=== PATIENT | female | born 1980 | race Two or more races ===

== ENCOUNTER 2016-09-14 22:45 | Emergency (ER) | payer MEDICAID ==
[~2016-09-14] VITALS: Ht 162.6 cm; Wt 86.2 kg
[~2016-09-14 22:45] MED LIST: ATIVAN0.5 MG ORAL; BACTRIM-DS1 EA ORAL; BACTROBAN 2% OI15 GM TOPIC; CIPRO500 MG PO; HYDROCODON-ACE1 EA15 ORAL; IBUPROFEN600 MG ORAL; NORCO 5-325 TA1 EACH ORAL; ZOFRAN4 MG ORAL
[2016-09-14 23:00] VITALS: BP 119/61
[2016-09-14] MEDS ORDERED: NKM (23:05)
--- NOTE | 2016-09-14 23:29 | Emergency Room Report ---
History of Present Illness General Chief Complaint: Chest Pain Source: Patient Present Illness HPI Is a 36-year-old female with no significant past medical history. She presents with chief complaint of not feeling well for last week. Subjective fever and chills. Also with sore throat. Chest tightness. No cough or congestion. No runny nose. Has not anything for this. Denies any other complaint. Allergies: Coded Allergies: PENICILLINS (Verified Allergy, Unknown, rash, 09/14/16) Patient History Past Medical History: see triage record, old chart reviewed Past Surgical History: none Pertinent Family History: none Social History: Denies: smoking Last Menstrual Period: Sep 06 Now: No Immunizations: other Reviewed Nursing Documentation: PMH: Agreed, PSxH: Agreed Nursing Documentation-PMH Past Medical History: No Stated History Hx Hypertension: No Hx Neurological Problems: No Review of Systems Constitutional: Reports: fever, weakness Eye: Denies: blurred vision, eye pain ENT: Denies: ear pain, nose congestion, throat swelling Respiratory: Denies: cough, shortness of breath Cardiovascular: Denies: chest pain, palpitations Gastrointestinal: Denies: abdominal pain, diarrhea, nausea, vomiting Musculoskeletal: Denies: back pain, joint pain Skin: Denies: rash Neurological: Denies: headache, numbness Endocrine: Denies: increased thirst, increased urine Hematologic/Lymphatic: Denies: easy bruising All Other Systems: negative except mentioned in HPI Physical Exam Vital Signs Date Time Temp Pulse Resp B/P Pulse Ox O2 Delivery O2 Flow Rate FiO2 09/14/16 22:57 98.6 95 16 132/92 99 Room Air vitals normal Sp02 EP Interpretation: reviewed, normal General Appearance: well appearing, no apparent distress, alert Head: normocephalic, atraumatic Eyes: bilateral eye EOMI, bilateral eye PERRL ENT: hearing grossly normal, tonsillar swelling, pharyngeal erythema Neck: full range of motion, supple, no meningismus Respiratory: chest non-tender, lungs clear, normal breath sounds Cardiovascular #1: regular rate, rhythm, no murmur Gastrointestinal: normal bowel sounds, non tender, no mass, no organomegaly, no bruit, non-distended Musculoskeletal: back normal, gait/station normal, normal range of motion Psychiatric: mood/affect normal Skin: warm/dry Medical Decision Making Diagnostic Impression: Primary Impression: Tonsillitis with exudate Additional Impressions: Chest pain Qualified Codes: R07.9 - Chest pain, unspecified Obesity (BMI 30.0-34.9) ER Course Patient presents with tonsillitis and subjective fever. No evidence of retropharyngeal abscess, peritonsillar abscess or Ryan angina. She fell better now. We'll discharge home. EKG Diagnostic Results Rate: normal Rhythm: NSR ST Segments: no acute changes Rhythm Strip Diag. Results EP Interpretation: yes Rate: 80 Rhythm: NSR, no PVC's, no ectopy Chest X-Ray Diagnostic Results EP Interpretation: Yes Findings: no consolidation, no effusion, no pneumothorax, no acute cardiopulmonary disease Number of Views: 1 Last Vital Signs Date Time Temp Pulse Resp B/P Pulse Ox O2 Delivery O2 Flow Rate FiO2 09/14/16 22:57 98.6 95 16 132/92 99 Room Air Status: improved Disposition: HOME, SELF-CARE Condition: Stable Scripts Azithromycin* (ZITHROMAX*) 250 Mg Tablet 250 MG ORAL DAILY, #6 TAB 0 Refills Take two tablets by mouth today, then take one tablet by mouth daily for four days Prov: JOSIAH ROSENBERG M.D. 09/15/16 Hydrocodone/Acetaminophen 5-325* (HYDROCODONE/ACETAMINOPHEN 5-325*) 1 Each Tablet 1 TAB ORAL Q6H Y for For Pain, #20 TAB 0 Refills Prov: JOSIAH ROSENBERG M.D. 09/15/16 Additional Instructions: Followup with your DrTish in 7 days. Return if symptom worsen. JOSIAH ROSENBERG M.D. Sep 14, 2016 23:29
[2016-09-14] MEDS ORDERED: Ketorolac 30mg Inj IV ONE (23:30)
[2016-09-14 23:36] LABS: APPEARANCE,URINE CLEAR; KETONES,URINE NEGATIVE (NEGATIVE); LEUKOCYTE ESTERASE ,URINE NEGATIVE (NEGATIVE); NITRITE,URINE NEGATIVE (NEGATIVE); PH,URINE 7 (4.5-8.0); PROTEIN,URINE NEGATIVE (NEGATIVE); UROBILINOGEN,URINE NORMAL MG/DL (0.0-1.0)
[2016-09-14 23:57] VITALS: BP 122/77
[2016-09-15] MEDS ORDERED: Morphine Sulfate 4mg/ml Inj IVP ONE (00:30)
[2016-09-15] MEDS ORDERED: Morphine Sulfate 4mg/ml Inj ONE (00:30)
[2016-09-15] MEDS ORDERED: HYDROCODON-ACE1 EA15 ORAL (00:32)
[2016-09-15] MEDS ORDERED: AZITHROMYCIN250 MG ORAL (00:32)
[2016-09-15 00:55] VITALS: BP 122/77
--- NOTE | 2016-09-15 10:27 | Diagnostic Imaging Report ---
Indication: Chest pain Technique: One view of the chest Comparison: none Findings: Lungs and pleural spaces are clear. Heart size is normal. Impression: No acute process
--- NOTE | 2016-09-17 14:55 | Cardiology Report ---
APPROVED REPORT EKG Measurement Heart [id number] Normal sinus rhythm Normal ECG
== END 2016-09-15 00:55 | disposition home or self-care (01) ==
LOC: EMR 23:20
DX: J03.90 Acute tonsillitis, unspecified (principal); R07.9 Chest pain, unspecified; E66.9 Obesity, unspecified; Z68.32 Body mass index [BMI] 32.0-32.9, adult; Z88.0 Allergy status to penicillin
CPT/HCPCS: 71010; 81003; 81025; 93005; 96374; 96375; 99284; J1885; J2270; J2405

== ENCOUNTER 2016-12-17 22:58 | Emergency (ER) | payer MEDICAID ==
[~2016-12-17] VITALS: Ht 162.6 cm; Wt 89.8 kg
[~2016-12-17 22:58] MED LIST changes: +AZITHROMYCIN250 MG ORAL; +NKM
[2016-12-17 23:32] VITALS: BP 114/71
[2016-12-17] MEDS ORDERED: CLINDAMYCIN HC300 MG ORAL (23:33)
[2016-12-17] MEDS ORDERED: HYDROCODON-ACE1 EA15 ORAL (23:33)
--- NOTE | 2016-12-17 23:33 | Emergency Room Report ---
History of Present Illness General Chief Complaint: Sore Throat Source: Patient Present Illness HPI This is a 28-year-old female who presents with chief complaint of sore throat. His been ongoing for 2 weeks. She saw and was prescribe erythromycin. She stopped taking it because he getting stomach upset and nausea from it. Still with pain. Initially had fever but not now. Also describes swelling to her neck. Pain radiates to her ear. Pain is 10 out of 10. No relief with Motrin. No drooling. Allergies: Coded Allergies: PENICILLINS (Verified Allergy, Unknown, rash, 09/14/16) Patient History Past Medical History: see triage record, old chart reviewed Past Surgical History: none Pertinent Family History: none Social History: Denies: smoking Last Menstrual Period: November Now: No Immunizations: other Reviewed Nursing Documentation: PMH: Agreed, PSxH: Agreed Nursing Documentation-PMH Hx Hypertension: No Hx Neurological Problems: Yes - MIGRAINE Review of Systems Eye: Denies: blurred vision, eye pain ENT: Reports: ear pain, throat pain, throat swelling, Denies: nose congestion Respiratory: Denies: cough, shortness of breath Cardiovascular: Denies: chest pain, palpitations Gastrointestinal: Denies: abdominal pain, diarrhea, nausea, vomiting Musculoskeletal: Denies: back pain, joint pain Skin: Denies: rash Neurological: Denies: headache, numbness Endocrine: Denies: increased thirst, increased urine Hematologic/Lymphatic: Denies: easy bruising All Other Systems: negative except mentioned in HPI Physical Exam Vital Signs Date Time Temp Pulse Resp B/P Pulse Ox O2 Delivery O2 Flow Rate FiO2 12/17/16 23:15 98.1 84 18 114/71 100 Room Air vitals normal Sp02 EP Interpretation: reviewed, normal General Appearance: well appearing, no apparent distress, alert Head: normocephalic, atraumatic Eyes: bilateral eye EOMI, bilateral eye PERRL ENT: hearing grossly normal, normal pharynx, other - Tonsils are enlarged. Mild erythema with scant exudates. Neck: full range of motion, supple, no meningismus Respiratory: chest non-tender, lungs clear, normal breath sounds Cardiovascular #1: regular rate, rhythm, no murmur Gastrointestinal: normal bowel sounds, non tender, no mass, no organomegaly, no bruit, non-distended Musculoskeletal: back normal, gait/station normal, normal range of motion Psychiatric: mood/affect normal Skin: warm/dry Medical Decision Making Diagnostic Impression: Primary Impression: Tonsillitis with exudate ER Course Patient presents with acute tonsillitis. We'll switch antibiotics. No evidence of peritonsillar abscess or retropharyngeal abscess. No evidence of Ryan angina. We'll discharge home. Last Vital Signs Date Time Temp Pulse Resp B/P Pulse Ox O2 Delivery O2 Flow Rate FiO2 12/17/16 23:15 98.1 84 18 114/71 100 Room Air Status: improved Disposition: HOME, SELF-CARE Condition: Stable Scripts Hydrocodone/Acetaminophen 5-325* (HYDROCODONE/ACETAMINOPHEN 5-325*) 1 Each Tablet 1 TAB ORAL Q6H Y for For Pain, #15 TAB 0 Refills Prov: JOSIAH ROSENBERG M.D. 12/17/16 Clindamycin Hcl (CLINDAMYCIN HCL) 300 Mg Capsule 300 MG ORAL THREE TIMES A DAY, #21 CAP Prov: JOSIAH ROSENBERG M.D. 12/17/16 Patient Instructions: Tonsillitis Additional Instructions: followup with your DrTishin 2 to 3 days. Return if worse. JOSIAH ROSENBERG M.D. Dec 17, 2016 23:33
[2016-12-17 23:45] VITALS: BP 114/71
[2016-12-17] MEDS ORDERED: PredniSONE 20mg tab ORAL ONE (23:45)
[2016-12-17] MEDS ORDERED: Norco 5mg/325mg tab ORAL ONE (23:45)
== END 2016-12-17 23:44 | disposition home or self-care (01) ==
LOC: EMR 23:38
DX: J03.90 Acute tonsillitis, unspecified (principal); Z88.0 Allergy status to penicillin
CPT/HCPCS: 99284

== ENCOUNTER 2017-12-14 20:41 | Emergency (ER) | payer MEDICAID ==
[~2017-12-14] VITALS: Ht 162.6 cm; Wt 86.2 kg
[~2017-12-14 20:41] MED LIST changes: +CLINDAMYCIN HC300 MG ORAL
[2017-12-14 21:00] VITALS: BP 132/90
[2017-12-14] MEDS ORDERED: PSEUDOEPHEDRINE60 MG PO (21:20)
[2017-12-14] MEDS ORDERED: HYDROCODON-ACE1 EA15 ORAL (21:20)
[2017-12-14] MEDS ORDERED: IBUPROFEN600 MG ORAL (21:20)
--- NOTE | 2017-12-14 21:20 | Emergency Room Report ---
History of Present Illness General Chief Complaint: Headache Source: Patient Present Illness HPI This 37-year-old female with a history of migraine. She presents with chief complaint of headache, sore throat, nasal congestion, cough. Onset for last 2 days. Excedrin and Motrin not helping her headache. Pain is 9 out of 10. Throbbing in nature. Mostly in the left side. Similar to previous headache. No nausea no vomiting. No diarrhea. Swallowing made it worse. Allergies: Coded Allergies: PENICILLINS (Verified Allergy, Unknown, rash, 09/14/16) Patient History Past Medical History: see triage record, old chart reviewed Past Surgical History: none Pertinent Family History: none Social History: Denies: smoking Last Menstrual Period: 12/12/17 Now: No Immunizations: other Reviewed Nursing Documentation: PMH: Agreed; PSxH: Agreed Nursing Documentation-PMH Past Medical History: No Stated History Hx Hypertension: No Hx Neurological Problems: Yes - MIGRAINE Review of Systems Eye: Denies: eye pain, blurred vision ENT: Reports: nose congestion, throat pain, throat swelling; Denies: ear pain Respiratory: Reports: cough; Denies: shortness of breath Cardiovascular: Denies: chest pain, palpitations Gastrointestinal: Denies: abdominal pain, diarrhea, nausea, vomiting Musculoskeletal: Denies: back pain, joint pain Skin: Denies: rash Neurological: Denies: headache, numbness Endocrine: Denies: increased thirst, increased urine Hematologic/Lymphatic: Denies: easy bruising All Other Systems: negative except mentioned in HPI Physical Exam Vital Signs Date Time Temp Pulse Resp B/P (MAP) Pulse Ox O2 Delivery O2 Flow Rate FiO2 12/14/17 20:52 98.3 87 20 132/90 97 Room Air 98.2 vitals normal Sp02 EP Interpretation: reviewed, normal General Appearance: well appearing, no apparent distress, alert Head: normocephalic, atraumatic Eyes: bilateral eye PERRL, bilateral eye EOMI ENT: hearing grossly normal, tonsillar swelling, pharyngeal erythema, other - Bilateral TMs are scarred previous infection. There is mild fluid in the left. Neck: full range of motion, supple, no meningismus Respiratory: chest non-tender, lungs clear, normal breath sounds Cardiovascular #1: regular rate, rhythm, no murmur Gastrointestinal: normal bowel sounds, non tender, no mass, no organomegaly, no bruit, non-distended Musculoskeletal: back normal, gait/station normal, normal range of motion Psychiatric: mood/affect normal Skin: warm/dry Medical Decision Making Diagnostic Impression: Primary Impression: Acute viral pharyngitis Additional Impression: Headache Qualified Codes: G44.209 - Tension-type headache, unspecified, not intractable ER Course Patient with a viral illness. No evidence of bacterial meningitis, sepsis, pneumonia, strep throat, or other serious bacterial infection. Last Vital Signs Date Time Temp Pulse Resp B/P (MAP) Pulse Ox O2 Delivery O2 Flow Rate FiO2 12/14/17 21:00 98.2 89 20 132/90 97 Room Air 98.2 Status: improved Disposition: HOME, SELF-CARE Condition: Stable Scripts Pseudoephedrine Hcl* (SUDAFED*) 60 Mg Tablet 60 MG PO Q6H, #30 TAB Prov: JOSIAH ROSENBERG M.D. 12/14/17 Ibuprofen* (MOTRIN*) 600 Mg Tablet 600 MG ORAL THREE TIMES A DAY, #30 TAB 0 Refills Prov: JOSIAH ROSENBERG M.D. 12/14/17 Hydrocodone/Acetaminophen 5-325* (HYDROCODONE/ACETAMINOPHEN 5-325*) 1 Each Tablet 1 TAB ORAL Q6H PRN for For Pain, #15 TAB 0 Refills Prov: JOSIAH ROSENBERG M.D. 12/14/17 Patient Instructions: Sinus Headache Additional Instructions: Increase fluids. Saltwater gargle. Follow-up your doctor in 7 days. Return if worse. JOSIAH ROSENBERG M.D. Dec 14, 2017 21:20
[2017-12-14 21:25] VITALS: BP 132/90
[2017-12-14] MEDS ORDERED: Norco 5mg/325mg tab ORAL ONE (21:30)
== END 2017-12-14 21:25 | disposition home or self-care (01) ==
LOC: EMR 21:14
DX: G44.209 Tension-type headache, unspecified, not intractable (principal); J02.9 Acute pharyngitis, unspecified; Z88.0 Allergy status to penicillin
CPT/HCPCS: 99284; J7512

== ENCOUNTER 2018-06-22 23:52 | Emergency (ER) | payer MEDICAID ==
[~2018-06-22] VITALS: Ht 162.6 cm; Wt 86.2 kg
[~2018-06-22 23:52] MED LIST changes: +PSEUDOEPHEDRINE60 MG PO
[2018-06-23 00:19] VITALS: BP 137/91
[2018-06-23] MEDS ORDERED: TYLENOL EXTRA500 MG ORAL (00:32)
[2018-06-23] MEDS ORDERED: PROMETHAZINE-C118 M1 ORAL (00:32)
[2018-06-23] MEDS ORDERED: ROBAXIN-750750 MG PO (00:32)
[2018-06-23 00:52] VITALS: BP 137/91
--- NOTE | 2018-06-23 01:21 | Emergency Room Report ---
History of Present Illness General Chief Complaint: Upper Respiratory Illness Source: Patient Present Illness HPI 37-year-old female presents ED for evaluation. Complaining of left upper back pain, 1 day. Dull, 8 out of 10, radiating to the front. Notes pain with deep breaths. States she's been coughing for a few days now. Cough is dry. Denies fevers or chills. Denies shortness of breath. Denies sick contacts or travel. No other aggravating relieving factors. Denies any other associated symptoms Allergies: Coded Allergies: PENICILLINS (Verified Allergy, Unknown, rash, 09/14/16) Patient History Past Medical History: migraines Past Surgical History: none Pertinent Family History: none Social History: Denies: smoking, alcohol use, drug use Last Menstrual Period: 06/02/2018 Now: No : 4 Para: 4 Immunizations: UTD Reviewed Nursing Documentation: PMH: Agreed; PSxH: Agreed Nursing Documentation-PMH Hx Hypertension: No Hx Neurological Problems: Yes - MIGRAINE Review of Systems All Other Systems: negative except mentioned in HPI Physical Exam Vital Signs Date Time Temp Pulse Resp B/P (MAP) Pulse Ox O2 Delivery O2 Flow Rate FiO2 06/23/18 00:03 98.2 85 18 137/91 97 Room Air 98.2 Sp02 EP Interpretation: reviewed, normal General Appearance: no apparent distress, alert, GCS 15, non-toxic Head: normocephalic Eyes: bilateral eye normal inspection, bilateral eye PERRL ENT: normal ENT inspection Neck: normal inspection Respiratory: lungs clear, normal breath sounds, speaking full sentences, other - L anterior reproducible rib pain Cardiovascular #1: regular rate, rhythm, no edema Gastrointestinal: normal inspection Rectal: deferred Genitourinary: no CVA tenderness Musculoskeletal: tender - L upper back pain, medial to scapula Neurologic: alert, oriented x3, responsive, motor strength/tone normal, sensory intact, speech normal Psychiatric: normal inspection Skin: normal inspection Lymphatic: normal inspection Medical Decision Making Diagnostic Impression: Primary Impression: Bronchitis Additional Impression: Chest wall muscle strain Qualified Codes: S29.011A - Strain of muscle and tendon of front wall of thorax, initial encounter ER Course Hospital Course 37 yo F presents with L upper back pain, cough Differential diagnoses include: URI, pharyngitis, otitis media, asthma Clinical course Patient placed on stretcher. After initial history, physical exam reveals a female in no acute distress. Lungs clear. There is reproducible left upper back and left anterior rib pain. Remainder physical exam unremarkable consistent with bronchitis, chest wall muscle strain. discussed findings with patient. we will prescribe analgesics, muscle relaxers, cough medication safe for discharge with close outpatient followup Diagnosis - bronchitis, chest wall muscle strain Stable and discharged home with Rx Tylenol, Robaxin, promethazine/codeine. Instructed to followup with PMD. Return to ED if symptoms recur or worsen Last Vital Signs Date Time Temp Pulse Resp B/P (MAP) Pulse Ox O2 Delivery O2 Flow Rate FiO2 06/23/18 00:52 98.2 84 18 137/91 98 Room Air 98.2 Status: improved Disposition: HOME, SELF-CARE Condition: Stable Scripts Codeine/Promethazine Hcl* (PROMETHAZINE-CODEINE SYRUP*) 118 Ml Syrup 5 ML ORAL Q6H PRN for For Cough, #118 ML 0 Refills Prov: Ze Mckeon MD 06/23/18 Methocarbamol* (ROBAXIN-750*) 750 Mg Tablet 750 MG PO TID, #21 TAB 0 Refills Prov: Ze Mckeon MD 06/23/18 Acetaminophen* (TYLENOL EXTRA STRENGTH*) 500 Mg Tablet 500 MG ORAL Q6H PRN for Mild Pain/Temp > 100.5, #30 TAB 0 Refills Prov: Ze Mckeon MD 06/23/18 Patient Instructions: Chest Wall Pain, [id number] Ze Mckeon MD Jun 23, 2018 01:21
== END 2018-06-23 00:52 | disposition home or self-care (01) ==
LOC: EMR 06-23 00:21
DX: J40 Bronchitis, not specified as acute or chronic (principal); S29.011A Strain of muscle and tendon of front wall of thorax, initial encounter; X58.XXXA Exposure to other specified factors, initial encounter; Y92.9 Unspecified place or not applicable; Z88.0 Allergy status to penicillin
CPT/HCPCS: 99284

== ENCOUNTER 2019-01-15 21:47 | Emergency (ER) | payer MEDICAID, OTHER ==
[~2019-01-15] VITALS: Ht 154.9 cm; Wt 86.2 kg
[~2019-01-15 21:47] MED LIST changes: +PROMETHAZINE-C118 M1 ORAL; +ROBAXIN-750750 MG PO; +TYLENOL EXTRA500 MG ORAL
[2019-01-15 22:02] VITALS: BP 138/81
--- NOTE | 2019-01-15 22:02 | NUR ---
ED Nurse Note: Pt arrived ED from home, c/o left shoulder pain 03/19 today, no c/o fall.Pt is A/O X 4. VSS. Waiting for orders.
--- NOTE | 2019-01-15 23:32 | NUR ---
ED Nurse Note: Meds given as ordered.
[2019-01-15 23:40] LABS: APPEARANCE,URINE CLEAR; BILIRUBIN, URINE NEGATIVE (NEGATIVE); COLOR,URINE PALE YELLOW; GLUCOSE, URINE (UA) NEGATIVE (NEGATIVE); KETONES,URINE NEGATIVE (NEGATIVE); LEUKOCYTE ESTERASE ,URINE NEGATIVE (NEGATIVE); NITRITE,URINE NEGATIVE (NEGATIVE); PH,URINE 6 (4.5-8.0); PROTEIN,URINE NEGATIVE (NEGATIVE); UROBILINOGEN,URINE NORMAL MG/DL (0.0-1.0)
[2019-01-15 23:43] LABS: BASOPHILS % (AUTO) 1.4 % (0.0-2.0); EOSINOPHILS % (AUTO) 3.9 % (0.0-3.0); HEMATOCRIT 38.8 % (37.0-47.0); LYMPHOCYTES % (AUTO) 37.6 % (20.0-45.0); MEAN CORPUSCULAR VOLUME 85 FL (80-99); MONOCYTES % (AUTO) 6.9 % (1.0-10.0); NEUTROPHILS % (AUTO) 50.2 % (45.0-75.0); PLATELET COUNT 316 K/UL (150-450); RED BLOOD COUNT 4.57 M/UL (4.20-5.40); RED CELL DISTRIBUTION WIDTH 12.3 % (11.6-14.8); WHITE BLOOD COUNT 8.8 K/UL (4.8-10.8)
[2019-01-15 23:57] LABS: ANION GAP 8 mmol/L (5-15); BLOOD UREA NITROGEN 13 mg/dL (7-18); CALCIUM 8.9 MG/DL (8.5-10.1); CARBON DIOXIDE 27 MMOL/L (21-32); CHLORIDE 105 MMOL/L (98-107); CREATININE 0.7 MG/DL (0.55-1.30); POTASSIUM 3.5 MMOL/L (3.5-5.1); SODIUM 139 MMOL/L (136-145)
[2019-01-16 00:10] LABS: ALANINE AMINOTRANSFERASE 23 U/L (12-78); ALBUMIN 3.4 G/DL (3.4-5.0); ALBUMIN/GLOBULIN RATIO 0.9 (1.0-2.7); ALKALINE PHOSPHATASE 77 U/L (46-116); ASPARTATE AMINO TRANSFERASE 15 U/L (15-37); BILIRUBIN,TOTAL 0.2 MG/DL (0.2-1.0)
[2019-01-16] MEDS ORDERED: IBUPROFEN600 MG ORAL (00:19)
[2019-01-16] MEDS ORDERED: GABAPENTIN300 MG ORAL (00:19)
[2019-01-16 00:41] VITALS: BP 138/81
--- NOTE | 2019-01-16 00:41 | NUR ---
ER DISCHARGE NOTE: Patient is cleared to be discharged per Dr. Flores. Pt is aox4, on room air with stable vital signs. Pt was given dc and prescription instructions, pt was able to verbalize understanding. Pt ID band and iv site removed without complications. pt is able to ambulate with steady gait. pt took all belongings.
--- NOTE | 2019-01-16 06:13 | Emergency Room Report ---
History of Present Illness General Chief Complaint: General Complaint Source: Patient Present Illness HPI Patient is a 38-year-old female presented after increased left upper extremity pain for several days. Patient reports of increased left upper extremity numbness this had been present for many days. Patient had prior history of. Similar symptoms which normally wake her up from sleep. 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 She denies any other locations of discomfort. Patient had no recent trauma. Pain was unchanged by neck movement. Allergies: Coded Allergies: PENICILLINS (Verified Allergy, Unknown, rash, 09/14/16) Patient History Last Menstrual Period: 12/22/18 Now: Yes Reviewed Nursing Documentation: PMH: Agreed; PSxH: Agreed Nursing Documentation-PMH Past Medical History: No History, Except For Hx Hypertension: No Hx Neurological Problems: Yes - MIGRAINE Review of Systems All Other Systems: negative except mentioned in HPI Physical Exam Vital Signs Date Time Temp Pulse Resp B/P (MAP) Pulse Ox O2 Delivery O2 Flow Rate FiO2 01/15/19 21:54 98.2 81 18 98 Room Air 01/15/19 22:02 138/81 Sp02 EP Interpretation: reviewed, normal General Appearance: normal inspection, well appearing, no apparent distress, alert, GCS 15, non-toxic Head: atraumatic ENT: normal ENT inspection, hearing grossly normal, normal voice Neck: normal inspection, full range of motion, supple, no bony tend Respiratory: normal inspection, lungs clear, normal breath sounds, no respiratory distress, no retraction, no wheezing Cardiovascular #1: regular rate, rhythm, no edema Gastrointestinal: normal inspection, normal bowel sounds, non tender, soft, no guarding, no hernia Genitourinary: no CVA tenderness Musculoskeletal: normal inspection, back normal, normal range of motion Neurologic: normal inspection, alert, oriented x3, responsive, catalyst impregnator III-XII nml as tested, speech normal Psychiatric: normal inspection, judgement/insight normal, mood/affect normal Skin: normal inspection, normal color, no rash Medical Decision Making Diagnostic Impression: Primary Impression: Peripheral nerve disorder ER Course Patient presented for left arm numbness. Differential diagnosis include is not limited to vascular occlusion, coronary artery disease, carpal tunnel, peripheral nerve disease among others. CT the head read by radiology showed no evidence of acute CVA. Laboratory studies were unremarkable. EKG interpreted by me showed normal sinus rhythm with a rate of [address] or T wave changes. Patient was noted to have a negative troponin. Patient does not have significant cardiac risk. Patient was advised to follow-up with her primary care physician for neurology referral. She was given prescription for medications for symptomatic treatment. She is advised to return if she had any focal weakness or other concerns. Last Vital Signs Date Time Temp Pulse Resp B/P (MAP) Pulse Ox O2 Delivery O2 Flow Rate FiO2 01/16/19 00:41 98.2 82 18 138/81 98 Room Air Status: improved Disposition: HOME, SELF-CARE Condition: Stable Scripts Gabapentin* (GABAPENTIN*) 300 Mg Capsule 300 MG ORAL THREE TIMES A DAY, #20 CAP 0 Refills Prov: Jacobo Flores MD 01/16/19 Ibuprofen* (MOTRIN*) 600 Mg Tablet 600 MG ORAL Q8H PRN for For Pain, #30 TAB 0 Refills Prov: Jacobo Flores MD 01/16/19 Departure Forms: Return to Work Return to Work in (Days): 3 Patient Instructions: Paresthesia, [id number] Additional Instructions: Follow up with neurology for recheck. Return if worse Jacobo Flores MD January 16, 2019 06:13
--- NOTE | 2019-01-16 09:35 | Diagnostic Imaging Report ---
Indication: Altered mental status Technique: Contiguous 5 mm thick transaxial imaging of the head obtained in a Siemens Sensation [address] scanner. Soft tissue and bone windows generated. Automatic Exposure Control was utilized. Total Dose length Product (DLP): 1431.[address] Dose Index Volume (CTDIvol): 70.38 mGy Comparison: 11/08/2010 Findings: The size and configuration of the cortical sulci, basal cisterns, and ventricles are within normal limits for age. There is no mass effect, midline shift, or edema identified. There is no evidence of acute hemorrhage or abnormal intra-axial or extra-axial fluid collections. The bones and soft tissues are unremarkable. Impression: No mass effect, edema or acute bleed. [facility] has communicated the preliminary results to the Emergency Department. Their findings are largely concordant with this report. The CT scanner at [facility] is accredited by the [employer] and the scans are performed using dose optimization techniques as appropriate to a performed exam including Automatic Exposure control.
== END 2019-01-16 00:41 | disposition home or self-care (01) ==
LOC: EMR 22:11
DX: G56.82 Other specified mononeuropathies of left upper limb (principal); Z88.0 Allergy status to penicillin
CPT/HCPCS: 36415; 70450; 80053; 81001; 81025; 84443; 84484; 85025; 99284

== ENCOUNTER 2019-06-08 21:27 | Emergency (ER) | payer MEDICAID, OTHER ==
[~2019-06-08] VITALS: Ht 162.6 cm; Wt 85.7 kg
[~2019-06-08 21:27] MED LIST changes: +GABAPENTIN300 MG ORAL
--- NOTE | 2019-06-08 21:42 | NUR ---
ER Nurse Note: Pt walked in c/o burning sensation when urination, urgency to urinate since 06/07. pt stated 6/10 pain. Pt stated white thin discharge. Pt in restroom for urine sample. Will continue to monitor.
[2019-06-08 21:43] VITALS: BP 124/86
[2019-06-08] MEDS ORDERED: Phenazopyridine 200mg tab ORAL ONE (21:45)
[2019-06-08] MEDS ORDERED: Cephalexin 500mg cap ORAL ONE (21:45)
--- NOTE | 2019-06-08 21:45 | Emergency Room Report ---
History of Present Illness General Chief Complaint: Female Urogenital Problems Source: Patient Present Illness HPI Is a 38-year-old female with no past medical history. She presents with chief complaint of dysuria, frequency, urgency. Onset yesterday. No hematuria. Pain is sharp. Worse with urination. Pain is 8 out of 10. No trauma. No discharge. Denies any other complaint. No fever or back pain. Allergies: Coded Allergies: PENICILLINS (Verified Allergy, Unknown, rash, 09/14/16) Patient History Past Medical History: none, see triage record, old chart reviewed Past Surgical History: none Pertinent Family History: none Social History: Denies: smoking Last Menstrual Period: 05/23/2017 Now: No Immunizations: other Reviewed Nursing Documentation: PMH: Agreed; PSxH: Agreed Nursing Documentation-PMH Hx Hypertension: No Hx Neurological Problems: Yes - MIGRAINE Review of Systems Eye: Denies: eye pain, blurred vision ENT: Denies: ear pain, nose congestion, throat swelling Respiratory: Denies: cough, shortness of breath Cardiovascular: Denies: chest pain, palpitations Gastrointestinal: Denies: abdominal pain, diarrhea, nausea, vomiting Genitourinary: Reports: dysuria, frequency, pain, urgency Musculoskeletal: Denies: back pain, joint pain Skin: Denies: rash Neurological: Denies: headache, numbness Endocrine: Denies: increased thirst, increased urine Hematologic/Lymphatic: Denies: easy bruising All Other Systems: negative except mentioned in HPI Physical Exam Vital Signs Date Time Temp Pulse Resp B/P (MAP) Pulse Ox O2 Delivery O2 Flow Rate FiO2 06/08/19 21:36 98.4 78 16 124/86 (99) 97 Room Air Vitals normal Sp02 EP Interpretation: reviewed, normal General Appearance: well appearing, no apparent distress, alert Head: normocephalic, atraumatic Eyes: bilateral eye PERRL, bilateral eye EOMI ENT: hearing grossly normal, normal pharynx Neck: full range of motion, supple, no meningismus Respiratory: chest non-tender, lungs clear, normal breath sounds Cardiovascular #1: regular rate, rhythm, no murmur Gastrointestinal: normal bowel sounds, non tender, no mass, no organomegaly, no bruit, non-distended Musculoskeletal: back normal, gait/station normal, normal range of motion Psychiatric: mood/affect normal Medical Decision Making Diagnostic Impression: Primary Impression: UTI (urinary tract infection) Qualified Codes: N30.00 - Acute cystitis without hematuria ER Course Patient presents with symptoms consistent with UTI. No evidence of any pyelonephritis. No sepsis. Dose of antibiotics and Pyridium given here. Discharge home. Last Vital Signs Date Time Temp Pulse Resp B/P (MAP) Pulse Ox O2 Delivery O2 Flow Rate FiO2 06/08/19 21:43 98.4 74 16 124/86 97 Room Air Status: improved Disposition: HOME, SELF-CARE Condition: Stable Scripts Phenazopyridine Hcl* (PYRIDIUM*) 200 Mg Tablet 200 MG ORAL THREE TIMES A DAY, #6 TAB 0 Refills Prov: Omar Coley MD 06/08/19 Cephalexin* (KEFLEX*) 500 Mg Capsule 500 MG ORAL TID, #21 CAP Prov: Omar Coley MD 06/08/19 Patient Instructions: Urinary Tract Infection Additional Instructions: Increase fluids. Follow-up with your doctor in 7 days for recheck if not better. Return if symptoms not better in 2 days. Omar Coley MD Jun 08, 2019 21:45
[2019-06-08] MEDS ORDERED: PHENAZOPYRIDIN200 MG ORAL (21:48)
[2019-06-08] MEDS ORDERED: CEPHALEXIN500 MG ORAL (21:48)
--- NOTE | 2019-06-08 21:55 | NUR ---
ED Nurse Note: Patient tolerated medication adminsitration well. Patient cleared for discaharge, Patient ID band removed, Patient departed with all belongings accompanied by her .
[2019-06-08 21:57] VITALS: BP 124/86
== END 2019-06-08 21:57 | disposition home or self-care (01) ==
LOC: EMR 21:56
DX: N30.00 Acute cystitis without hematuria (principal); Z88.0 Allergy status to penicillin
CPT/HCPCS: 87086; Z7502; 99283

== ENCOUNTER 2019-08-08 21:07 | Emergency (ER) | payer MEDICAID ==
[~2019-08-08] VITALS: Ht 162.6 cm; Wt 86.2 kg
[~2019-08-08 21:07] MED LIST changes: +CEPHALEXIN500 MG ORAL; +PHENAZOPYRIDIN200 MG ORAL
[2019-08-08] MEDS ORDERED: AMOXICILLIN500 M1 PO (21:14)
[2019-08-08 21:15] VITALS: BP 142/95
--- NOTE | 2019-08-08 21:15 | NUR ---
ED Nurse Note: Patient walked in to ER c/o difficulty swallowing, muffled hearing and fever x 1 week. 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 Temp at triage 98.2. Patient reports swollen tongue after taken unknown medication. Patient was prescribed amoxicillin 500mg 3 weeks ago but was not compliant. No SOB. VSS.
--- NOTE | 2019-08-08 21:20 | NUR ---
ED Nurse Note: ERMD at bedside.
[2019-08-08] MEDS ORDERED: Ketorolac 60mg Inj IM ONE (21:30)
[2019-08-08] MEDS ORDERED: Dexamethasone 20mg/5ml IM ONE (21:30)
--- NOTE | 2019-08-08 21:38 | Emergency Room Report ---
History of Present Illness General Chief Complaint: Allergic Reaction Source: Patient Present Illness HPI 39-year-old female presenting with throat pain for 1 week duration associated with increased pain over the last 2 days. Patient was prescribed antibiotics as outpatient, but does not remember the name. Patient has subjective fevers for 2 days patient has been taking oral ibuprofen for. She did not take any ibuprofen today. Patient denies drooling, unable to tolerate p.o. She states it does hurt more with swallowing. Of note she was diagnosed with a URI 1 month ago and was given oral amoxicillin, which she took 3 days of prescribed medications and discontinue the rest. She is a mostly full bottle of 500 mg amoxicillin every 8 hours. Patient states she does not like to take medications. Allergies: Coded Allergies: PENICILLINS (Verified Allergy, Unknown, rash, 09/14/16) Patient History Past Medical History: none Past Surgical History: none Pertinent Family History: none Last Menstrual Period: 07/11/19 Nursing Documentation-[facility] Past Medical History: No History, Except For Hx Hypertension: No Hx Neurological Problems: Yes - MIGRAINE Review of Systems Constitutional: Denies: chills, fever ENT: Reports: throat pain; Denies: nose pain, nose congestion, mouth pain Respiratory: Denies: cough, shortness of breath Cardiovascular: Denies: chest pain, palpitations Gastrointestinal: Denies: diarrhea, vomiting Genitourinary: Denies: hematuria, pain Musculoskeletal: Denies: joint swelling Skin: Denies: rash, lesions Neurological: Denies: headache, dizziness Physical Exam Vital Signs Date Time Temp Pulse Resp B/P (MAP) Pulse Ox O2 Delivery O2 Flow Rate FiO2 08/08/19 21:08 98.2 82 14 142/95 (111) 98 Room Air Sp02 EP Interpretation: reviewed General Appearance: well appearing, no apparent distress, non-toxic Head: normocephalic, atraumatic Eyes: bilateral eye normal inspection ENT: normal ENT inspection, hearing grossly normal, EOM grossly intact, normal pharynx, no angioedema, normal voice, TMs + canals normal, uvula midline, moist mucus membranes Neck: supple Respiratory: lungs clear, normal breath sounds, no respiratory distress, speaking full sentences Cardiovascular #1: regular rate, rhythm, normal capillary refill Cardiovascular #2: 2+ radial (R), 2+ radial (L) Gastrointestinal: soft, non-distended Rectal: deferred Musculoskeletal: moves extm spontaneously, no lower extremity edema Neurologic: grossly normal Psychiatric: mood/affect normal Skin: warm/dry, normal turgor Medical Decision Making Diagnostic Impression: Primary Impression: Throat pain Additional Impression: URI (upper respiratory infection) ER Course 39-year-old female with throat pain 1 week duration and subjective fevers status post starting antibiotics of unknown name 3 days ago with primary care doctor. Differential includes URI, strep throat, tonsillar stones, pharyngitis, peritonsillar abscess, retropharyngeal abscess, sepsis Patient is most likely with URI versus pharyngitis. Patient less likely to have retropharyngeal abscess, peritonsillar abscess, sepsis as patient is afebrile with no signs of stridor, respiratory distress, or tenderness to palpation. Patient is tolerating secretions, with normal swallow. No signs of airway compromise. Patient was stable for outpatient follow-up and will be discharged after pain medication and steroids. Patient recommend to complete her course of antibiotics and to be re-evaluated by her primary care doctor in 2 to 3 days Last Vital Signs Date Time Temp Pulse Resp B/P (MAP) Pulse Ox O2 Delivery O2 Flow Rate FiO2 08/08/19 21:15 82 14 Room Air 08/08/19 21:15 98.2 142/95 98 Disposition: HOME, SELF-CARE Condition: Stable Referrals: NON PHYSICIAN (PCP) Patient Instructions: Sore Throat, Upper Respiratory Infection, Adult Additional Instructions: Please see your primary care doctor in 2 days for reevaluation, return to emergency room if any worsening or new symptoms. Leander Chiu M.D. Aug 08, 2019 21:38
[2019-08-08 21:45] VITALS: BP 142/95
--- NOTE | 2019-08-08 21:45 | NUR ---
ED Nurse Note: Pt cleared by ERMD for discharge. DC instructions was given and explained to pt and verbalized understanding of teachings. All medical deviecs such as ID band removed. Pt is AAO x4, ambulatory and left with all personal belongings. Accompanied home by her .
== END 2019-08-08 21:45 | disposition home or self-care (01) ==
LOC: EMR 21:28
DX: J06.9 Acute upper respiratory infection, unspecified (principal); R07.0 Pain in throat; G43.909 Migraine, unspecified, not intractable, without status migrainosus; Z88.0 Allergy status to penicillin
CPT/HCPCS: 96372; J1100; Z7502; 99283

== ENCOUNTER 2019-11-24 17:34 | Emergency (ER) | payer SELFPAY ==
[~2019-11-24] VITALS: Ht 162.6 cm; Wt 86.2 kg
[~2019-11-24 17:34] MED LIST changes: +AMOXICILLIN500 M1 PO
--- NOTE | 2019-11-24 18:23 | NUR ---
ED Nurse Note: Pt ambulated to ED from home with c/o sore throat. Per triage, pt recently traveled from [facility]. Pt denies any dry cough nor chills. Pt's VSS, afebrile on triage. Placed on a private room, isolation precaution observed; kept the door closed at all times. assured safety.
[2019-11-24 18:25] VITALS: BP 131/84
--- NOTE | 2019-11-24 19:28 | Emergency Room Report ---
History of Present Illness General Chief Complaint: Upper Respiratory Illness Source: Patient Present Illness HPI 39-year-old female with history of recurrent strep pharyngitis here complaining of 10 out of 10 sore throat that started 3 days ago with headache. Complains of minor congestion however denies any fever and chills and cough. Denies any generalized body ache. Denies chest pain shortness of breath. Denies abdominal pain nausea vomiting. Has not taken medication for symptom relief. Patient is afebrile and all vital signs are within normal limits. Patient reports that she got back from [facility] on November 17. Symptoms started 3 days after. COVID-19 risk:Travel to affect: No Has patient experienced jang: No Allergies: Coded Allergies: PENICILLINS (Verified Allergy, Unknown, rash, 09/14/16) Patient History Past Medical History: see triage record Past Surgical History: none Pertinent Family History: none Now: No Immunizations: UTD Reviewed Nursing Documentation: PMH: Agreed; PSxH: Agreed Nursing Documentation-PMH Past Medical History: No Stated History Hx Hypertension: No Hx Neurological Problems: Yes - MIGRAINE Review of Systems All Other Systems: negative except mentioned in HPI Physical Exam Vital Signs Date Time Temp Pulse Resp B/P (MAP) Pulse Ox O2 Delivery O2 Flow Rate FiO2 11/24/19 18:12 98.2 98 16 131/84 (100) 98 Room Air Sp02 EP Interpretation: reviewed, normal General Appearance: no apparent distress, alert, GCS 15, non-toxic Head: normocephalic, atraumatic Eyes: bilateral eye normal inspection, bilateral eye PERRL ENT: nasal congestion, tonsillar swelling, tonsillar exudate Neck: full range of motion, supple/symm/no masses Respiratory: chest non-tender, lungs clear, normal breath sounds, no rhonchi, no wheezing, speaking full sentences Cardiovascular #1: regular rate, rhythm, no edema, no murmur Gastrointestinal: normal bowel sounds, non tender, soft, non-distended, no guarding, no rebound Genitourinary: no CVA tenderness Musculoskeletal: back normal Neurologic: alert, motor strength/tone normal, oriented x3, sensory intact, responsive, speech normal Psychiatric: judgement/insight normal, memory normal, mood/affect normal, no suicidal/homicidal ideation Skin: no rash Lymphatic: normal inspection Medical Decision Making PA Attestation All my diagnosis and treatment plans were reviewed ad discussed with my supervising physician Dr. Baugh Diagnostic Impression: Primary Impression: Strep pharyngitis Additional Impression: Upper respiratory disease ER Course 39-year-old female with history of recurrent strep pharyngitis here complaining of 10 out of 10 sore throat that started 3 days ago with headache. Complains of minor congestion however denies any fever and chills and cough. Denies any generalized body ache. Denies chest pain shortness of breath. Denies abdominal pain nausea vomiting. Has not taken medication for symptom relief. Patient is afebrile and all vital signs are within normal limits. Patient reports that she got back from [facility] on November 17. Symptoms started 3 days after. Ddx considered but are not limited to: Coronavirus, strep pharyngitis, URI, tonsillitis, peritonsillar abscess, influneza Vital signs: are WNL, pt. is afebrile H&PE are most consistent with: Strep pharyngitis, upper respiratory disease ORDERS: Azithromycin, Motrin ED INTERVENTIONS: None required at this time. DISCHARGE: At this time pt. is stable for d/c to home. Will provide printed patient care instructions, and any necessary prescriptions. Care plan and follow up instructions have been discussed with the patient prior to discharge. Take medication as directed, follow-up with your primary doctor, you need to stay home for self quarantine due to Covid 19 precautions for 14 days Last Vital Signs Date Time Temp Pulse Resp B/P (MAP) Pulse Ox O2 Delivery O2 Flow Rate FiO2 11/24/19 18:25 98 16 Room Air 11/24/19 18:25 98.2 131/84 98 Disposition: HOME, SELF-CARE Condition: Stable Scripts Ibuprofen* (MOTRIN*) 400 Mg Tablet 400 MG ORAL THREE TIMES A DAY, #30 TAB 0 Refills Prov: Madison Brasher 11/24/19 Azithromycin* (ZITHROMAX*) 250 Mg Tablet 250 MG ORAL DAILY, #6 TAB 0 Refills Take two tables once daily for 1 day, then one tablet once daily for 4 days. Prov: Madison Brasher 11/24/19 Patient Instructions: Pharyngitis, [id number], Upper Respiratory Infection, Adult Additional Instructions: Take medication as directed, stay home and Claritin also for the next 15 days, avoid big community of people, follow-up with your primary care provider, increase oral hydration Madison Brasher Nov 24, 2019 19:28
[2019-11-24] MEDS ORDERED: IBUPROFEN400 MG ORAL (19:29)
[2019-11-24] MEDS ORDERED: ZITHROMAX250 MG ORAL (19:29)
[2019-11-24 19:35] VITALS: BP 131/84
--- NOTE | 2019-11-24 19:35 | NUR ---
ER DISCHARGE NOTE: Patient is cleared to be discharged per ERMD, pt is aox4, on room air, with stable vital signs. pt was given dc and prescription instructions, pt was able to verbalize understanding, pt id band remvoed. pt is able to ambulate with steady gait. pt took all belongings.
== END 2019-11-24 19:35 | disposition home or self-care (01) ==
LOC: EMR 19:00
DX: J02.0 Streptococcal pharyngitis (principal); J06.9 Acute upper respiratory infection, unspecified; Z88.0 Allergy status to penicillin
CPT/HCPCS: 99282

== ENCOUNTER 2020-03-09 11:16 | Emergency (ER) | payer MEDICAID ==
[~2020-03-09] VITALS: Ht 162.6 cm; Wt 86.2 kg
[~2020-03-09 11:16] MED LIST changes: +IBUPROFEN400 MG ORAL; +ZITHROMAX250 MG ORAL
[2020-03-09 11:20] VITALS: BP 134/86
--- NOTE | 2020-03-09 11:27 | NUR ---
ED Nurse Note: Pt from home walked in due flu like symptoms. Pt came in with dry coughing and CP only when coughing. Denies fever or chills. AAO x4, ambulatory with non labored breathing.
[2020-03-09] MEDS ORDERED: Benzonatate 100mg Perles ORAL ONE (11:30)
--- NOTE | 2020-03-09 11:30 | Emergency Room Report ---
History of Present Illness General Chief Complaint: Flu Like Symptoms Source: Patient Present Illness HPI Patient is a 39-year-old female denies any significant past medical history who presents to the ER complaining of flulike symptoms. Patient complains of, cough , chest wall pain when coughing as well as throat pain for the past several days. 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 Patient denies any chest pain at rest. She denies any shortness of breath. Allergies: Coded Allergies: PENICILLINS (Verified Allergy, Unknown, rash, 09/14/16) COVID-19 Screening Contact w/high risk pt: No Recent Travel to affected area: No Experienced COVID-19 symptoms?: Yes COVID-19 symptoms experienced: Cough, Flu-Like Symptoms COVID-19 Testing performed PAINTER BARREL: No Patient History Last Menstrual Period: 01/15/2020 Now: No Reviewed Nursing Documentation: PMH: Agreed; PSxH: Agreed Nursing Documentation-PMH Past Medical History: No Stated History Hx Hypertension: No Hx Neurological Problems: Yes - MIGRAINE Review of Systems All Other Systems: negative except mentioned in HPI Physical Exam Vital Signs Date Time Temp Pulse Resp B/P (MAP) Pulse Ox O2 Delivery O2 Flow Rate FiO2 03/09/20 11:20 98.2 84 19 134/86 (102) 100 Room Air Sp02 EP Interpretation: reviewed, normal General Appearance: no apparent distress, alert, GCS 15, non-toxic Head: normocephalic, atraumatic Eyes: bilateral eye normal inspection, bilateral eye PERRL ENT: moist mucus membranes, nasal congestion, other - No tonsillar swelling or exudate Neck: full range of motion, no meningismus, supple/symm/no masses Respiratory: chest non-tender, lungs clear, normal breath sounds, speaking full sentences Cardiovascular #1: regular rate, rhythm, no edema Gastrointestinal: normal bowel sounds, non tender, soft, non-distended, no guarding, no rebound Rectal: deferred Genitourinary: no CVA tenderness Musculoskeletal: normal range of motion Neurologic: alert, motor strength/tone normal, oriented x3, sensory intact, responsive, speech normal Psychiatric: no suicidal/homicidal ideation Skin: no rash Lymphatic: no adenopathy Medical Decision Making Diagnostic Impression: Primary Impression: Influenza-like symptoms Additional Impression: Viral syndrome ER Course Patient is afebrile. Oxygen saturation is 100% on room air. Patient declining chest x-ray. Patient wants referral for outpatient COVID-19 testing. I have given her paperwork discussing this. Patient presents to the emergency room with mild respiratory infection. I explained that this could be due to respiratory infection such as the cold, the flu or Coronavirus Disease. Most people with such infections can get better with appropriate home care and without the need to see a provider. People who are elderly, or have a weak immune system or other medical problems are at a higher risk of more serious illness or complications. I recommend that they carefully monitor their symptoms closely and seek medical care early if their symptoms get worse. I recommend rest, drinking plenty of fluids, taking [id number] cold and flu medications to reduce fever and pain. I noted that these medicines do not cure the illness and therefore do not stop them from spreading the germs. I recommend self quarantine for 14 days. Explained to the patient that we do not do routine Covid-19 testing for mild respiratory infections at [facility] in the Emergency Department. They may obtain it on an outpatient basis. I asked them to call their doctor before going to their office so they can prepare for their visit and note that the patient may have Covid-19. I recommend isolation until tests show that the patient does not have Covid-19 or they are told by the public health department or their primary care physician that they are no longer infectious. Last Vital Signs Date Time Temp Pulse Resp B/P (MAP) Pulse Ox O2 Delivery O2 Flow Rate FiO2 03/09/20 11:25 84 19 Room Air 03/09/20 11:20 98.2 134/86 100 Disposition: HOME, SELF-CARE Condition: Stable Scripts Benzonatate* (TESSALON PERLE*) 100 Mg Capsule 100 MG ORAL THREE TIMES A DAY for 7 Days, PERLE Prov: Felisa Cooper M.D. 03/09/20 Additional Instructions: The patient was provided with discharge instructions, notified to follow-up with a primary care doctor and or specialist in the next 24-48 hours, and to return to the ED if they have worsening of their symptoms. Please note that this report is being documented using [employer] technology. This can lead to erroneous entry secondary to incorrect interpretation by the dictating instrument. Felisa Cooper M.D. Mar 09, 2020 11:30
--- NOTE | 2020-03-09 11:36 | NUR ---
ED Nurse Note: Pt refused CXR and Dr Cooper was notified.
[2020-03-09] MEDS ORDERED: TESSALON PERLE100 MG ORAL (11:39)
[2020-03-09 11:42] VITALS: BP 128/75
--- NOTE | 2020-03-09 11:42 | NUR ---
ER DISCHARGE NOTE: Patient is cleared to be discharged per ERMD, pt is aox4, on room air, with stable vital signs. pt was given dc and prescription instructions, pt was able to verbalize understanding, pt id band removed. pt is able to ambulate with steady gait. pt took all belongings.
== END 2020-03-09 12:13 | disposition home or self-care (01) ==
LOC: EMR 11:40
DX: B34.9 Viral infection, unspecified (principal); R05 Cough; Z88.0 Allergy status to penicillin
CPT/HCPCS: 99282